=== PATIENT | female | born 1945 | race Caucasian/White ===

== ENCOUNTER 2024-03-30 08:05 | Day surgery (SDC) | payer OTHER ==
[2024-03-22 17:27] VITALS: BMI 28.3
[2024-03-30] MEDS ORDERED: PROPOFOL 20 ML ONE (09:36)
[2024-03-30] MEDS ORDERED: MIDAZOLAM HCL 2 MG/2 ML SINGLE DOSE VIAL ONE (09:37)
[2024-03-30] MEDS ORDERED: ONDANSETRON 4 MG/2 ML VIAL IVPUSH PRN ×2 (10:29→13:05)
[2024-03-30] MEDS ORDERED: BUPIVACAINE LIPOSOME/PF (EXPAREL) 266 MG/20 ML VIAL ONE (10:32)
[2024-03-30] MEDS ORDERED: ACETAMINOPHEN INJECTION 100 ML ONE (10:32)
[2024-03-30] MEDS ORDERED: BUPIVACAINE HCL/PF 0.5% (5MG/ML) 10 ML VIAL ONE (10:32)
[2024-03-30] MEDS ORDERED: ceFAZolin SODIUM 1 GM VIAL ONE (11:01)
[2024-03-30] MEDS ORDERED: TRANEXAMIC ACID 1000 MG/10 ML VIAL ONE ×3 (11:01→11:43)
[2024-03-30] MEDS ORDERED: DEXAMETHASONE SOD PHOSPHATE 4 MG/1 ML VIAL ONE (11:42)
[2024-03-30] MEDS ORDERED: MAG HYDROX/AL HYDROX/SIMETH 30 ML UNIT-DOSE CUP PO PRN (13:05)
[2024-03-30] MEDS ORDERED: MAGNESIUM HYDROX 2400MG/30ML ORAL SUSPENSION 30 ML CUP PO PRN (13:05)
[2024-03-30] MEDS: oxyCODONE HCL 5 MG TABLET PO PRN (15:16)
[2024-03-30] MEDS: LACTATED RINGERS SOLUTION 1,000 ML IV SCH (15:19)
[2024-03-30] MEDS: CEFAZOLIN 2 GM in DEXTROSE 5%-WATER - 100 ML IVPB ONE (16:15)
[2024-03-30] MEDS: CEFAZOLIN SODIUM 2 GM in DEXTROSE 5%-WATER 100 ML IVPB SCH (19:21)
[2024-03-30] MEDS: ACETAMINOPHEN 1000 MG/100 ML BAG IVPB SCH (20:44)
[2024-03-30] MEDS: ASPIRIN 81 MG CHEWABLE TABLETS PO SCH (21:08)
[2024-03-30] MEDS: FAMOTIDINE 20 MG TABLET PO SCH (21:08)
[2024-03-30] MEDS: TRANEXAMIC ACID 1000 MG/10 ML VIAL IVPB SCH (21:08)
[2024-03-30] MEDS: DEXAMETHASONE 4 MG TABLET (FP) PO SCH (21:08)
[2024-03-30] MEDS: SENNOSIDES/DOCUSATE COMBO (SENNA PLUS) TABLET (UD) PO SCH (21:08)
[2024-03-31 02:59] VITALS: RESP 18
[2024-03-31] MEDS: oxyCODONE HCL 5 MG TABLET PO PRN (06:13)
[2024-03-31] MEDS: CHLORTHALIDONE 25 MG TABLET PO SCH (09:32)
[2024-03-31] MEDS: ATENOLOL 50 MG TABLET (FP) PO SCH (09:33)
[2024-03-31] MEDS: amLODIPine BESYLATE 5 MG TABLET (FP) PO SCH (09:33)
[2024-03-31] MEDS: MULTIVITAMINS (DAILY MVI) TABLET (FP) PO SCH (09:33)
[2024-03-31 14:49] VITALS: BP 104/67; PULSE 76; TEMP 97.1
== END 2024-03-31 16:50 | disposition home health service (06) ==
LOC: FASUSAT 08:05 → FM/S 15:04 → FASUSAT 03-31 16:50
PROVIDERS: ATTEND Orthopaedic Surgery
PROC: 0SRC0J9 Replacement of Right Knee Joint with Synthetic Substitute, Cemented, Open Approach (ICD-10-PCS; principal; 2024-03-30 11:22)
DX: M17.11 Unilateral primary osteoarthritis, right knee (principal)
CPT/HCPCS: 27447; C1776; 73560-TC-RT-FY; 94760; 97116-GP; 97162-GP; J0131